=== PATIENT | female | born 1975 | race Caucasian/White ===

== ENCOUNTER → 2017-10-30 | Outpatient (CLI) | payer OTHER ==
--- NOTE | 2017-10-30 17:00 | XR ---
EXAMINATION TYPE: XR foot complete LT DATE OF EXAM: 10/30/2017 COMPARISON: NONE HISTORY: Foot pain TECHNIQUE: 3 views FINDINGS: I see no fracture nor dislocation. Joint spaces are normal. Metatarsals are intact. IMPRESSION: Negative left foot exam.
== END ==
LOC: RADXRMAIN 16:18
PROVIDERS: ATTEND Physician Assistant Medical
DX: M25.572 Pain in left ankle and joints of left foot (principal)

== ENCOUNTER 2018-04-27 12:26 | Observation (INO) | payer OTHER ==
[2018-04-27] MEDS ORDERED: NITROGLYCERIN OINT 1 INCH/GM PACKET TOPICAL STA (12:45)
--- NOTE | 2018-04-27 12:48 | ED ---
General Adult HPI - General Chief complaint: Chest Pain Stated complaint: Chest Pain Time Seen by Provider: 04/27/18 12:30 Source: patient, EMS, RN notes reviewed Mode of arrival: EMS Limitations: no limitations - History of Present Illness Initial comments: This is a 42-year-old female who presents emergency department via EMS. Patient states about an hour ago she started having chest pain that radiated directly to her back. Patient states she became very sweaty and then became nauseated and vomited. Patient states EMS to give her nitroglycerin which did relieve the pain temporarily but it did return. Patient states she was also mildly short of breath. Patient states she has high blood pressure high cholesterol and a family history is positive for heart disease. Patient denies any lightheadedness or dizziness. Patient denies any headache patient denies numbness weakness per patient denies any similar symptoms in the past. Patient denies any recent fever chills or cough. Patient denies abdominal pain. Patient denies any diarrhea recently. Patient denies any leg swelling or calf tenderness. Patient denies smoking. - Related Data Home Medications Medication Instructions Recorded Confirmed Ferrous Sulfate [Feosol] 325 mg PO DAILY 04/27/18 04/27/18 Allergies Allergy/AdvReac Type Severity Reaction Status Date / Time azithromycin [From Zithromax] Allergy Rash/Hives Verified 04/27/18 13:10 erythromycin base Allergy Rash/Hives Verified 04/27/18 13:10 Review of Systems ROS Statement: Those systems with pertinent positive or pertinent negative responses have been documented in the HPI. ROS Other: All systems not noted in ROS Statement are negative. Past Medical History Past Medical History: GERD/Reflux History of Any Multi-Drug Resistant Organisms: None Reported Past Surgical History: Hernia Repair, Tonsillectomy, Tubal Ligation Past Psychological History: No Psychological Hx Reported Smoking Status: Never smoker Past Alcohol Use History: None Reported Past Drug Use History: None Reported General Exam - General Exam Comments Initial Comments: GENERAL: Patient is well-developed and well-nourished. Patient is nontoxic and well- hydrated and is in mild distress. ENT: Neck is soft and supple. No significant lymphadenopathy is noted. Oropharynx is clear. Moist mucous membranes. Neck has full range of motion without eliciting any pain. EYES: The sclera were anicteric and conjunctiva were pink and moist. Extraocular movements were intact and pupils were equal round and reactive to light. Eyelids were unremarkable. PULMONARY: Unlabored respirations. Good breath sounds bilaterally. No audible rales rhonchi or wheezing was noted. CARDIOVASCULAR: There is a regular rate and rhythm without any murmurs gallops or rubs. ABDOMEN: Soft and nontender with normal bowel sounds. No palpable organomegaly was noted. There is no palpable pulsatile mass. SKIN: Skin is clear with no lesions or rashes and otherwise unremarkable. NEUROLOGIC: Patient is alert and oriented x3. Cranial nerves II through XII are grossly intact. Motor and sensory are also intact. Normal speech, volume and content. Symmetrical smile. MUSCULOSKELETAL: Normal extremities with adequate strength and full range of motion. No lower extremity swelling or edema. No calf tenderness. LYMPHATICS: No significant lymphadenopathy is noted PSYCHIATRIC: Normal psychiatric evaluation. Normal interpersonal interactions appears functionally intact in deals appropriately with others. No signs of depression. No signs of anxiety. Limitations: no limitations Course Vital Signs 04/27/18 04/27/18 12:31 14:09 Temperature 98.4 F Pulse Rate 92 91 Respiratory 18 18 Rate Blood Pressure 103/67 113/75 O2 Sat by Pulse 98 100 Oximetry Medical Decision Making - Medical Decision Making EKG shows normal sinus rhythm at 86 bpm HI interval 1:30 QRS is 82 QT interval 378 QT C is 452 per patient's EKG shows no ST segment elevation or depression or T wave abnormalities are noted. Chest x-ray shows no acute abnormality. I started the patient heparin because of her unstable angina like symptoms. I spoke with because he agreed to admit the patient admitted the patient I consult to cardiology and I wrote admitting orders I continue the heparin has been Nitropaste on the floor. - Lab Data Result diagrams: 04/27/18 13:00 04/27/18 13:00 Lab Results 04/27/18 04/27/18 04/27/18 Range/Units 13:00 13:00 13:00 WBC 8.3 (3.8-10.6) k/uL RBC 4.63 (3.80-5.40) m/uL Hgb 13.1 (11.4-16.0) gm/dL Hct 40.8 (34.0-46.0) % MCV 88.3 (80.0-100.0) fL MCH 28.3 (25.0-35.0) pg MCHC 32.1 (31.0-37.0) g/dL RDW 14.6 (11.5-15.5) % Plt Count 395 (150-450) k/uL Neutrophils % 67 % Lymphocytes % 25 % Monocytes % 5 % Eosinophils % 1 % Basophils % 0 % Neutrophils # 5.5 (1.3-7.7) k/uL Lymphocytes # 2.1 (1.0-4.8) k/uL Monocytes # 0.4 (0-1.0) k/uL Eosinophils # 0.1 (0-0.7) k/uL Basophils # 0.0 (0-0.2) k/uL PT (9.0-12.0) sec INR (<1.2) APTT (22.0-30.0) sec Sodium 139 (137-145) mmol/L Potassium 4.6 (3.5-5.1) mmol/L Chloride 108 H (98-107) mmol/L Carbon Dioxide 24 (22-30) mmol/L Anion Gap 7 mmol/L BUN 12 (7-17) mg/dL Creatinine 0.87 (0.52-1.04) mg/dL Est GFR (CKD-EPI)AfAm >90 (>60 ml/min/1.73 sqM) Est GFR (CKD-EPI)NonAf 83 (>60 ml/min/1.73 sqM) Glucose 114 H (74-99) mg/dL Calcium 9.3 (8.4-10.2) mg/dL Magnesium 1.8 (1.6-2.3) mg/dL Total Bilirubin 0.9 (0.2-1.3) mg/dL AST 99 H (14-36) U/L ALT 56 H (9-52) U/L Alkaline Phosphatase 124 (38-126) U/L Total Creatine Kinase 67 (30-135) U/L CK-MB (CK-2) <0.2 (0.0-2.4) ng/mL CK-MB (CK-2) Rel Index Troponin I <0.012 (0.000-0.034) ng/mL Total Protein 7.1 (6.3-8.2) g/dL Albumin 3.8 (3.5-5.0) g/dL 12/07/18 Range/Units 13:00 WBC (3.8-10.6) k/uL RBC (3.80-5.40) m/uL Hgb (11.4-16.0) gm/dL Hct (34.0-46.0) % MCV (80.0-100.0) fL MCH (25.0-35.0) pg MCHC (31.0-37.0) g/dL RDW (11.5-15.5) % Plt Count (150-450) k/uL Neutrophils % % Lymphocytes % % Monocytes % % Eosinophils % % Basophils % % Neutrophils # (1.3-7.7) k/uL Lymphocytes # (1.0-4.8) k/uL Monocytes # (0-1.0) k/uL Eosinophils # (0-0.7) k/uL Basophils # (0-0.2) k/uL PT 10.4 (9.0-12.0) sec INR 1.0 (<1.2) APTT 23.9 (22.0-30.0) sec Sodium (137-145) mmol/L Potassium (3.5-5.1) mmol/L Chloride (98-107) mmol/L Carbon Dioxide (22-30) mmol/L Anion Gap mmol/L BUN (7-17) mg/dL Creatinine (0.52-1.04) mg/dL Est GFR (CKD-EPI)AfAm (>60 ml/min/1.73 sqM) Est GFR (CKD-EPI)NonAf (>60 ml/min/1.73 sqM) Glucose (74-99) mg/dL Calcium (8.4-10.2) mg/dL Magnesium (1.6-2.3) mg/dL Total Bilirubin (0.2-1.3) mg/dL AST (14-36) U/L ALT (9-52) U/L Alkaline Phosphatase (38-126) U/L Total Creatine Kinase (30-135) U/L CK-MB (CK-2) (0.0-2.4) ng/mL CK-MB (CK-2) Rel Index Troponin I (0.000-0.034) ng/mL Total Protein (6.3-8.2) g/dL Albumin (3.5-5.0) g/dL Critical Care Time Critical Care Time: Yes Total Critical Care Time: 35 Disposition Clinical Impression: Unstable angina pectoris Disposition: ADMITTED IP TO THIS HOSP Referrals: Franco Palomo DO [Primary Care Provider] - 1-2 days Time of Disposition: 15:03
[2018-04-27 13:29] LABS: Basophils % (A) 0 %; Eosinophils # (A) 0.1 k/uL (0-0.7); Eosinophils % (A) 1 %; HCT 40.8 % (34.0-46.0); HGB 13.1 gm/dL (11.4-16.0); Lymphocytes # (A) 2.1 k/uL (1.0-4.8); Lymphocytes % (A) 25 %; MCH 28.3 pg (25.0-35.0); MCHC 32.1 g/dL (31.0-37.0); MCV 88.3 fL (80.0-100.0); Mean Platelet Volume 6.6; Monocytes # (A) 0.4 k/uL (0-1.0); Monocytes % (A) 5 %; Neutrophils # (A) 5.5 k/uL (1.3-7.7); Neutrophils % (A) 67 %; Platelet Count 395 k/uL (150-450); RBC 4.63 m/uL (3.80-5.40); RDW 14.6 % (11.5-15.5); WBC 8.3 k/uL (3.8-10.6)
--- NOTE | 2018-04-27 13:36 | XR ---
EXAMINATION TYPE: XR chest 2V DATE OF EXAM: 04/27/2018 COMPARISON: NONE HISTORY: Chest pain. TECHNIQUE: Frontal and lateral views of the chest are obtained. FINDINGS: There is no focal air space opacity, pleural effusion, or pneumothorax seen. The cardiac silhouette size is within normal limits. The osseous structures are intact. There is a partial intr athoracic stomach/large hiatal hernia. There is resultant left basilar subsegmental atelectasis aroun d the lateral periphery that is curvilinear. IMPRESSION: No acute cardiopulmonary process. Large hiatal hernia/partial intrathoracic stomach crea ting left basilar atelectasis.
[2018-04-27 13:40] LABS: Partial Thromboplastin Time 23.9 sec (22.0-30.0); Prothrombin Time 10.4 sec (9.0-12.0)
[2018-04-27 13:43] LABS: ALT 56 U/L (9-52); AST 99 U/L (14-36); Albumin 3.8 g/dL (3.5-5.0); Alkaline Phosphatase 124 U/L (38-126); Anion Gap 7 mmol/L; Blood Urea Nitrogen 12 mg/dL (7-17); Calcium 9.3 mg/dL (8.4-10.2); Carbon Dioxide 24 mmol/L (22-30); Chloride 108 mmol/L (98-107); Glucose 114 mg/dL (74-99); Magnesium 1.8 mg/dL (1.6-2.3); Potassium 4.6 mmol/L (3.5-5.1); Sodium 139 mmol/L (137-145); Total Bilirubin 0.9 mg/dL (0.2-1.3); Total Protein 7.1 g/dL (6.3-8.2)
[2018-04-27 13:58] LABS: Creatine Kinase 67 U/L (30-135)
[2018-04-27 14:11] LABS: Creatine Kinase MB <0.2 ng/mL (0.0-2.4); Troponin I <0.012 ng/mL (0.000-0.034)
[2018-04-27] MEDS ORDERED: HEPARIN SODIUM,PORCINE 5,000 UNIT/ML 1 ML VIAL IV ONE (15:04)
[2018-04-27] MEDS ORDERED: NITROGLYCERIN SL TABS 0.4 MG TAB SUBLINGUAL PRN (15:04)
[2018-04-27] MEDS ORDERED: HEPARIN SOD,PORK IN 0.45% NACL 25,000 UNIT in 0.45% NACL 1 500ML.BAG IV SCH (15:15)
--- NOTE | 2018-04-27 16:06 | P.HPIM ---
History of Present Illness Patient is a 42-year-old female came in with complaints of epigastric abdominal pain sharp in nature radiating between the shoulder blade area. Patient still has her gallbladder the pain started shortly after eating the a pretzel became nausea did did actually vomited in the ER. Patient pain lasted for about the half an hour was severe in nature at that time completely resolved now. Patient denied any fever chills patient denied any cough patient's chest pain is nonpleuritic in nature. EKG showed normal sinus rhythm patient is not a smoker, not diabetic, no history of hypertension and hyperlipidemia. Patient does have significant family history of premature coronary artery disease in brother who had myocardial infarctions at age 47 Review of Systems REVIEW OF SYSTEMS: CONSTITUTIONAL: No fever, no malaise, no fatigue. HEENT: No recent visual problems or hearing problems. Denied any sore throat. CARDIOVASCULAR: No orthopnea, PND, no palpitations, no syncope. PULMONARY: No shortness of breath, no cough, no hemoptysis. GASTROINTESTINAL: No diarrhea. NEUROLOGICAL: No headaches, no weakness, no numbness. HEMATOLOGICAL: Denies any bleeding or petechiae. GENITOURINARY: Denies any burning micturition, frequency, or urgency. MUSCULOSKELETAL/RHEUMATOLOGICAL: Denies any joint pain, swelling, or any muscle pain. ENDOCRINE: Denies any polyuria or polydipsia. The rest of the 14-point review of systems is negative. Past Medical History Past Medical History: GERD/Reflux History of Any Multi-Drug Resistant Organisms: None Reported Past Surgical History: Hernia Repair, Tonsillectomy, Tubal Ligation Past Psychological History: No Psychological Hx Reported Smoking Status: Never smoker Past Alcohol Use History: None Reported Past Drug Use History: None Reported Medications and Allergies Home Medications Medication Instructions Recorded Confirmed Type Ferrous Sulfate [Feosol] 325 mg PO DAILY 04/27/18 04/27/18 History Allergies Allergy/AdvReac Type Severity Reaction Status Date / Time azithromycin [From Zithromax] Allergy Rash/Hives Verified 04/27/18 13:10 erythromycin base Allergy Rash/Hives Verified 04/27/18 13:10 Physical Exam Vitals: Vital Signs Temp Pulse Pulse Resp BP BP Pulse Ox 04/27/18 15:46 98.0 F 68 84 17 117/68 130/82 97 04/27/18 14:09 91 18 113/75 100 04/27/18 12:31 98.4 F 92 18 103/67 98 Intake and Output 04/27/18 04/27/18 04/27/18 06:59 14:59 22:59 Other: Weight 71.668 kg 72.7 kg PHYSICAL EXAMINATION: GENERAL: The patient is alert and oriented x3, not in any acute distress. Well developed, well nourished. HEENT: Pupils are round and equally reacting to light. EOMI. No scleral icterus. No conjunctival pallor. Normocephalic, atraumatic. No pharyngeal erythema. No thyromegaly. CARDIOVASCULAR: S1 and S2 present. No murmurs, rubs, or gallops. PULMONARY: Chest is clear to auscultation, no wheezing or crackles. ABDOMEN: Soft, nontender, nondistended, normoactive bowel sounds. No palpable organomegaly. MUSCULOSKELETAL: No joint swelling or deformity. EXTREMITIES: No cyanosis, clubbing, or pedal edema. NEUROLOGICAL: Gross neurological examination did not reveal any focal deficits. SKIN: No rashes. Results CBC & Chem 7: 04/27/18 13:00 04/27/18 13:00 Labs: Abnormal Lab Results - Last 24 Hours (Table) 04/27/18 Range/Units 13:00 Chloride 108 H (98-107) mmol/L Glucose 114 H (74-99) mg/dL AST 99 H (14-36) U/L ALT 56 H (9-52) U/L Assessment and Plan Plan: -Epigastric abdominal pain and chest pain: We'll rule out a concurrent syndromes repeat the 2 more sets of troponins and EKGs cardiology will be consulted. Patient appears to have gallbladder disease will obtain ultrasound of the liver and gallbladder patient appears to have cholelithiasis. We'll also start her on Protonix -Gastroesophageal reflux disease -mildly elevated liver enzymes probably due to a passed gallstone we'll repeat liver enzymes tomorrow again -Hiatal hernia
[2018-04-27 16:08] VITALS: BMI 32.3
[2018-04-27] MEDS: NITROGLYCERIN OINT 1 INCH/GM PACKET TOPICAL SCH ×2 (18:43→22:56)
[2018-04-27] MEDS: ACETAMINOPHEN TAB 325 MG TAB PO PRN (18:48)
[2018-04-27 19:37] LABS: Creatine Kinase 65 U/L (30-135)
[2018-04-27 19:38] VITALS: RESP 16
[2018-04-27 19:50] LABS: Creatine Kinase MB 0.3 ng/mL (0.0-2.4); Troponin I <0.012 ng/mL (0.000-0.034)
[2018-04-27 23:58] LABS: Creatine Kinase 62 U/L (30-135)
[2018-04-28 00:11] LABS: Creatine Kinase MB <0.2 ng/mL (0.0-2.4); Troponin I <0.012 ng/mL (0.000-0.034)
[2018-04-28] MEDS: NITROGLYCERIN OINT 1 INCH/GM PACKET TOPICAL SCH ×4 (05:47→20:04)
[2018-04-28 06:33] LABS: ALT 217 U/L (9-52); AST 169 U/L (14-36); Albumin 3.4 g/dL (3.5-5.0); Alkaline Phosphatase 138 U/L (38-126); Anion Gap 2 mmol/L; Blood Urea Nitrogen 11 mg/dL (7-17); Calcium 8.7 mg/dL (8.4-10.2); Carbon Dioxide 28 mmol/L (22-30); Chloride 109 mmol/L (98-107); Cholesterol 171 mg/dL (<200); Glucose 90 mg/dL (74-99); HDL Cholesterol 45 mg/dL (40-60); LDL Cholesterol,Calculated 106 mg/dL (0-99); Potassium 4.9 mmol/L (3.5-5.1); Sodium 139 mmol/L (137-145); Total Bilirubin 0.5 mg/dL (0.2-1.3); Total Protein 6.7 g/dL (6.3-8.2); Triglycerides 101 mg/dL (<150)
--- NOTE | 2018-04-28 08:04 | US ---
EXAMINATION TYPE: US gallbladder DATE OF EXAM: 04/28/2018 COMPARISON: NONE CLINICAL HISTORY: chest pain. abd pain and nausea yesterday, pt states known GB stones, LFT's evelvat ed from yesterday EXAM MEASUREMENTS: Liver Length: 14.4 cm Gallbladder Wall: 0.3 cm CBD: 0.4 cm Right Kidney: 8.0 x 3.5 x 3.8 cm Pancreas: limited views appear wnl Liver: wnl Gallbladder: multiple stones seen, smaller stone near neck was slightly mobile when rolled LLD, wall thickness borderline Evidence for sonographic Burk's sign: no CBD: wnl Right Kidney: wnl Very Limited views of the pancreas are unremarkable. The liver is normal in size without biliary dilatation. There are multiple stones within the gallbladder. Gallbladder wall measures 3 mm. The distal common h epatic duct measures 4 mm. There is a negative sonographic Burk's sign. The right kidney is unremarkable. IMPRESSION: CHOLELITHIASIS WITH POSSIBLE CHOLECYSTITIS.
--- NOTE | 2018-04-28 08:28 | CONS ---
CONSULTATION This is a 42-year-old lady admitted to the hospital with epigastric and left shoulder pain with a known history of gallbladder problems including cholelithiasis and I am not sure if she had a cholecystitis in the past. This lady was also complaining of some epigastric and lower chest discomfort. Therefore I was asked to see her in this regard. She does not have any significant risk factors. She is not a smoker. No diabetes. Has no hypertension. She has some family history of premature CAD. She has not had a stress test herself. The quality of her discomfort appears to be more or less abdominal in location and does not suggest to be angina. Even these symptoms have resolved. She is resting comfortably without symptoms. On reviewing her clinical data, it appears her liver functions are getting worse suggesting that we may be dealing with a cholecystitis type issue. At the time of my evaluation, she is resting comfortably without symptoms. PAST MEDICAL HISTORY: History of gastroesophageal reflux disease with known hiatal hernia. She has had some previous hiatal hernia issues as well. She is also known to have some gallstones. No evidence of any hypertension, diabetes, myocardial infarction or CVA. She is not a smoker. Does not use alcohol. MEDICATIONS: At home include iron supplements. ALLERGIES: ZITHROMAX. PHYSICAL EXAM: Revealed a blood pressure of 118/70, pulse rate is 68 per minute and regular. HEENT unremarkable. Fundus was not examined by me. Neck is supple. No JVD. I do not hear a carotid bruit. There is no thyromegaly. Heart exam reveals S1, S2 heard normally without a rub, murmur or gallop. Lungs are clear. Abdomen is soft, nontender. Lower extremities reveal normal pulses. No edema. Central nervous system is normal. EKG revealed sinus mechanism and is within normal limits. IMPRESSION: 1. Atypical chest pain. 2. Abnormal liver function tests with epigastric discomfort and known gallstones, possibly we are dealing with cholelithiasis issues. Clinical picture does not suggest any cholecystitis. White count is normal patient is not febrile. However, liver functions are going up and troponins are normal. RECOMMENDATION: I am recommending that we will discontinue the nitroglycerin paste, reduce the aspirin to 81 mg daily, discontinue IV heparin, place her on subcu heparin and a 0.9 saline at 75 mL/hour. Her EKG and physical exam are unremarkable from a cardiac standpoint. I will see her as needed. Thank you very much for the consult. PRO / JAMAL: [id number] /
[2018-04-28] MEDS ORDERED: ASPIRIN 325 MG TAB PO SCH (09:00)
--- NOTE | 2018-04-28 10:39 | ECHOF ---
Referral Reason:chest pain MEASUREMENTS -------- HEIGHT: 149.9 cm WEIGHT: 72.6 kg BP: 102/63 RVIDd: 2.3 cm (< 3.3) IVSd: 0.8 cm (0.6 - 1.1) LVIDd: 3.8 cm (3.9 - 5.3) LVPWd: 0.9 cm (0.6 - 1.1) IVSs: 1.1 cm LVIDs: 2.3 cm LVPWs: 1.1 cm LAESV Index (A-L): 16.46 ml/m Ao Diam: 2.9 cm (2.0 - 3.7) AV Cusp: 1.6 cm (1.5 - 2.6) LA Diam: 2.9 cm (2.7 - 3.8) MV E Sebastián: 1.01 m/s MV DecT: 239 ms MV A Sebastián: 0.72 m/s MV E/A Ratio: 1.40 RAP: 5.00 mmHg RVSP: 10.93 mmHg FINDINGS -------- Sinus rhythm. This was a technically good study. The left ventricular size is normal. Left ventricular wall thickness is normal. Overall left vent ricular systolic function is normal with, an EF between 55 - 60 %. The right ventricle is normal in size and function. Normal LA size by volume 22+/-6 ml/m2. The right atrium is normal in size. The aortic valve is trileaflet, and appears structurally normal. No aortic stenosis or regurgitation. The mitral valve leaflets are mildly thickened. There is trace to mild mitral regurgitation. Trace tricuspid regurgitation present. Right ventricular systolic pressure is normal at < 35 mmHg. There is no evidence of pulmonary hypertension. Trace/mild (physiologic) pulmonic regurgitation. The aortic root size is normal. Normal inferior vena cava with normal inspiratory collapse consistent with estimated right atrial pre ssure of 5 mmHg. There is no pericardial effusion. CONCLUSIONS -------- 1. Sinus rhythm. 2. This was a technically good study. 3. The left ventricular size is normal. 4. Left ventricular wall thickness is normal. 5. Overall left ventricular systolic function is normal with, an EF between 55 - 60 %. 6. Normal LA size by volume 22+/-6 ml/m2. 7. The aortic valve is trileaflet, and appears structurally normal. No aortic stenosis or regurgitati on. 8. The mitral valve leaflets are mildly thickened. 9. There is trace to mild mitral regurgitation. 10. Trace tricuspid regurgitation present. 11. Right ventricular systolic pressure is normal at < 35 mmHg. 12. There is no evidence of pulmonary hypertension. 13. Trace/mild (physiologic) pulmonic regurgitation. 14. The aortic root size is normal. 15. There is no pericardial effusion. BAT[employer]Y PLATE REMOVER: Eusebio Cuellar RDCS
[2018-04-28] MEDS ORDERED: ceFAZolin 1,000 MG in DEXTROSE/WATER 1 50ML.BAG IVPB STA (11:16)
--- NOTE | 2018-04-28 11:16 | P.GSCN ---
History of Present Illness Consult date: 04/28/18 History of present illness: 42-year-old female presented to the emergency department with complaints of epigastric and right upper quadrant abdominal pain, nausea and vomiting. She states that this episode began after having hot dog pretzel rolls in the mall. She states she has never had this issue before. She denies any change in her bowel movements. She states that her abdominal pain still remains but her nausea has improved. She states that she does have a history of a hiatal hernia that has been overall asymptomatic. Workup has been performed which does show some elevated liver function tests, however bilirubin levels are normal. Imaging also does show cholelithiasis with concern for cholecystitis. Cardiology was consulted and have ruled out cardiac etiology. She denies any fevers, chills, chest pain or shortness of breath. Review of Systems All systems: negative Past Medical History Past Medical History: GERD/Reflux History of Any Multi-Drug Resistant Organisms: None Reported Past Surgical History: Hernia Repair, Tonsillectomy, Tubal Ligation Past Anesthesia/Blood Transfusion Reactions: No Reported Reaction Additional Past Anesthesia/Blood Transfusion Reaction / Comm: pt states that she has never had blood transfusion Past Psychological History: No Psychological Hx Reported Smoking Status: Never smoker Past Alcohol Use History: None Reported Past Drug Use History: None Reported - Past Family History Brother(s) Family Medical History: Myocardial Infarction ([place]) Sister(s) Family Medical History: Hyperlipidemia, Hypertension Mother Family Medical History: Congestive Heart Failure (CHF), COPD Father Family Medical History: Cancer, Hypertension Additional Family Medical History / Comment(s): Lung cancer Medications and Allergies Home Medications Medication Instructions Recorded Confirmed Type Ferrous Sulfate [Feosol] 325 mg PO DAILY 04/27/18 04/27/18 History Allergies Allergy/AdvReac Type Severity Reaction Status Date / Time azithromycin [From Zithromax] Allergy Rash/Hives Verified 04/27/18 13:10 erythromycin base Allergy Rash/Hives Verified 04/27/18 13:10 Surgical - Exam Osteopathic Statement: *. No significant issues noted on an osteopathic structural exam other than those noted in the History and Physical/Consult. Vital Signs Temp Pulse Resp BP Pulse Ox 98.4 F 92 18 103/67 98 04/27/18 12:31 04/27/18 12:31 04/27/18 12:31 04/27/18 12:31 04/27/18 12:31 - General well nourished, no distress - Eyes PERRL, normal ocular movement - ENT normal mucosa - Neck trachea midline - Respiratory No difficulty with respiration - Abdomen Soft, mild tenderness in the right upper quadrant, nondistended, no rebound, no guarding - Neurologic normal coordination - Psychiatric oriented to time, oriented to person, oriented to place Results - Labs 04/27/18 13:00 04/28/18 05:40 Abnormal Lab Results - Last 24 Hours (Table) 04/27/18 04/27/18 04/28/18 Range/Units 13:00 22:28 05:40 APTT 49.7 H (22.0-30.0) sec Chloride 108 H 109 H (98-107) mmol/L Glucose 114 H (74-99) mg/dL AST 99 H 169 H (14-36) U/L ALT 56 H 217 H (9-52) U/L Alkaline Phosphatase 138 H (38-126) U/L Albumin 3.4 L (3.5-5.0) g/dL LDL Cholesterol, Calc 106 H (0-99) mg/dL 04/28/18 Range/Units 05:40 APTT 52.0 H (22.0-30.0) sec Chloride (98-107) mmol/L Glucose (74-99) mg/dL AST (14-36) U/L ALT (9-52) U/L Alkaline Phosphatase (38-126) U/L Albumin (3.5-5.0) g/dL LDL Cholesterol, Calc (0-99) mg/dL Diabetes panel 04/27/18 04/28/18 Range/Units 13:00 05:40 Sodium 139 139 (137-145) mmol/L Potassium 4.6 4.9 (3.5-5.1) mmol/L Chloride 108 H 109 H (98-107) mmol/L Carbon Dioxide 24 28 (22-30) mmol/L BUN 12 11 (7-17) mg/dL Creatinine 0.87 0.88 (0.52-1.04) mg/dL Glucose 114 H 90 (74-99) mg/dL Calcium 9.3 8.7 (8.4-10.2) mg/dL AST 99 H 169 H (14-36) U/L ALT 56 H 217 H (9-52) U/L Alkaline Phosphatase 124 138 H (38-126) U/L Total Protein 7.1 6.7 (6.3-8.2) g/dL Albumin 3.8 3.4 L (3.5-5.0) g/dL Triglycerides 101 (<150) mg/dL HDL Cholesterol 45 (40-60) mg/dL Calcium panel 04/27/18 04/28/18 Range/Units 13:00 05:40 Calcium 9.3 8.7 (8.4-10.2) mg/dL Albumin 3.8 3.4 L (3.5-5.0) g/dL Pituitary panel 04/27/18 04/28/18 Range/Units 13:00 05:40 Sodium 139 139 (137-145) mmol/L Potassium 4.6 4.9 (3.5-5.1) mmol/L Chloride 108 H 109 H (98-107) mmol/L Carbon Dioxide 24 28 (22-30) mmol/L BUN 12 11 (7-17) mg/dL Creatinine 0.87 0.88 (0.52-1.04) mg/dL Glucose 114 H 90 (74-99) mg/dL Calcium 9.3 8.7 (8.4-10.2) mg/dL Adrenal panel 04/27/18 04/28/18 Range/Units 13:00 05:40 Sodium 139 139 (137-145) mmol/L Potassium 4.6 4.9 (3.5-5.1) mmol/L Chloride 108 H 109 H (98-107) mmol/L Carbon Dioxide 24 28 (22-30) mmol/L BUN 12 11 (7-17) mg/dL Creatinine 0.87 0.88 (0.52-1.04) mg/dL Glucose 114 H 90 (74-99) mg/dL Calcium 9.3 8.7 (8.4-10.2) mg/dL Total Bilirubin 0.9 0.5 (0.2-1.3) mg/dL AST 99 H 169 H (14-36) U/L ALT 56 H 217 H (9-52) U/L Alkaline Phosphatase 124 138 H (38-126) U/L Total Protein 7.1 6.7 (6.3-8.2) g/dL Albumin 3.8 3.4 L (3.5-5.0) g/dL - Imaging US - abdomen: report reviewed, image reviewed (Cholelithiasis noted within the gallbladder, agree with 3 mm gallbladder wall) Assessment and Plan Plan: 42-year-old female with acute cholecystitis - Keep the patient nothing by mouth - Plan for laparoscopic cholecystectomy, I did discuss this with the patient. The patient is agreeable to the plan. - Will provide preop antibiotics and heparin
[2018-04-28] MEDS ORDERED: HEPARIN SODIUM,PORCINE 5,000 UNIT/ML 1 ML VIAL ONE (13:06)
[2018-04-28] MEDS ORDERED: MIDAZOLAM 2 MG/2 ML VIAL ONE (13:06)
[2018-04-28] MEDS ORDERED: KETOROLAC 30 MG/ML 1 ML VIAL ONE (13:06)
[2018-04-28] MEDS ORDERED: GLYCOPYRROLATE 0.2 MG/ML 2 ML VIAL ONE (13:06)
[2018-04-28] MEDS ORDERED: LIDOCAINE 1% INJ 10MG/ML (20 ML MDV) ONE (13:06)
[2018-04-28] MEDS ORDERED: SUCCINYLCHOLINE CHLORIDE 100 MG/5 ML SYR IV ONE (13:06)
[2018-04-28] MEDS ORDERED: SODIUM CHLORIDE 0.9% 1,000 ML IV ONE (13:06)
[2018-04-28] MEDS ORDERED: NEOSTIGMINE 1 MG/ML 10 ML VIAL ONE (13:06)
[2018-04-28] MEDS ORDERED: ROCURONIUM BROMIDE 10 MG/ML 10 ML VIAL IV ONE (13:06)
[2018-04-28] MEDS ORDERED: fentaNYL (PF) 50 MCG/ML 2 ML AMP ONE (13:06)
[2018-04-28] MEDS ORDERED: PROPOFOL 10 MG/ML 20 ML VIAL IV ONE (13:06)
[2018-04-28] MEDS ORDERED: SODIUM CHLORIDE 0.9% 50 ML with ceFAZolin 2,000 MG IV ONE ×2 (13:21)
[2018-04-28] MEDS ORDERED: MORPHINE SULFATE 2 MG/ML SYRINGE IV PRN (13:24)
[2018-04-28] MEDS ORDERED: HYDROmorphone 0.5 MG/0.5 ML SYRINGE IVP PRN (13:24)
[2018-04-28] MEDS ORDERED: LACTATED RINGERS 1,000 ML IV SCH (13:30)
[2018-04-28] MEDS ORDERED: BUPIVACAIN-EPI 0.5%-1:200,000 30 ML VIAL SQ ONE ×2 (13:36)
[2018-04-28] MEDS ORDERED: HYDROcodone/APAP 5-325MG 1 EACH TAB PO PRN (14:07)
[2018-04-28] MEDS ORDERED: MORPHINE SULFATE 2 MG/ML SYRINGE IVP PRN (14:08)
--- NOTE | 2018-04-28 14:13 | P.OP ---
Date of Procedure: 04/28/18 Preoperative Diagnosis: Acute cholecystitis Postoperative Diagnosis: Acute cholecystitis Procedure(s) Performed: Laparoscopic cholecystectomy Anesthesia: LAURA Surgeon: Jocelyn Paiz Pathology: other (Gallbladder and contents) Condition: stable Disposition: observation Indications for Procedure: 40-year-old female presented to the emergency department with complaints of abdominal pain. During workup, the patient was found to have acute cholecystitis. The patient was offered a laparoscopic cholecystectomy. She was explained the risks, benefits and alternatives to the procedure and did provide consent prior to attending the operating suite. Operative Findings: Inflamed gallbladder, large gallstones Description of Procedure: The patient was brought into the operating suite and placed in supine position on the operating table. Sedation was provided by anesthesia and the patient underwent endotracheal intubation. The patient was then prepped and draped in regular sterile fashion. A periumbilical incision was made just right of the midline at the umbilical area. The abdomen was entered under direct visualization using a Visiport trocar. Pneumoperitoneum was then achieved. 3 additional 5 mm trochars were then placed. One was placed in the subxiphoid location and 2 were placed in the right upper quadrant. The gallbladder was then grasped and retracted and the patient was placed in appropriate position. Dissection was made to skeletonize both the cystic duct and cystic artery. The cystic duct was skeletonized 2 clips were placed proximally and one was placed distally. The cystic duct was then ligated. The cystic artery also had 2 clips placed proximally and one placed distally and the cystic artery was ligated. Electrocautery was then used to dissect the gallbladder from the gallbladder fossa on the liver bed. Once completely removed it was placed in an Endo Catch bag and removed from the abdomen from the periumbilical incision site. Irrigation was then used in the right upper quadrant and suctioned. Hemostasis was noted to be maintained. A Tirso Fuchs device was then used to close the fascia at the periumbilical incision site with a 0 Vicryl suture in [id number] fashion. All skin incisions were then closed with 4-0 Vicryl subcuticular suture after trochars were removed and pneumoperitoneum was released. The patient was awakened in the operating suite and taken to postanesthesia care unit in stable condition.
[2018-04-28] MEDS: HYDROmorphone 1 MG/ML 1 ML SYRINGE IVP ONE ×2 (14:23→14:27)
[2018-04-28] MEDS ORDERED: ONDANSETRON 4 MG/2 ML VIAL IVP ONE (14:25)
[2018-04-28] MEDS: PANTOPRAZOLE 40 MG TABLET PO SCH (15:07)
[2018-04-28] MEDS: ASPIRIN 81 MG PO SCH (15:07)
[2018-04-28] MEDS: HEPARIN SODIUM,PORCINE 5,000 UNIT/ML 1 ML VIAL SQ SCH ×2 (15:07→19:56)
--- NOTE | 2018-04-28 15:28 | P.DS ---
Providers Date of admission: 04/27/18 15:06 Attending physician: Orlando Cline Consults: 04/27/18 15:05 Consult Physician Urgent Consulting Provider: [facility] Consult Reason/Comments: Unstable angina Do you want consulting provider notified?: Yes 04/28/18 08:32 Consult Physician Routine Consulting Provider: Jocelyn Paiz Consult Reason/Comments: cholecystitis/large hiatal hernia Do you want consulting provider notified?: Yes Primary care physician: Franco Palomo [facility] Course: 42-year-old female admitted the for chest pain rule out acute medicine syndromes. Patient is found to have cholecystitis patient will undergo laparoscopy cholecystectomy today if cleared by general surgery patient will be discharged today. PHYSICAL EXAMINATION: GENERAL: The patient is alert and oriented x3, not in any acute distress. Well developed, well nourished. HEENT: Pupils are round and equally reacting to light. EOMI. No scleral icterus. No conjunctival pallor. Normocephalic, atraumatic. No pharyngeal erythema. No thyromegaly. CARDIOVASCULAR: S1 and S2 present. No murmurs, rubs, or gallops. PULMONARY: Chest is clear to auscultation, no wheezing or crackles. ABDOMEN: Soft, nontender, nondistended, normoactive bowel sounds. No palpable organomegaly. MUSCULOSKELETAL: No joint swelling or deformity. EXTREMITIES: No cyanosis, clubbing, or pedal edema. NEUROLOGICAL: Gross neurological examination did not reveal any focal deficits. SKIN: No rashes. For rest of the chronic medical problems hospitalization course please refer to my HPI from yesterday Plan - Discharge Summary Discharge Rx Participant: No New Discharge Prescriptions: No Action Ferrous Sulfate [Feosol] 325 mg PO DAILY Discharge Medication List Ferrous Sulfate [Feosol] 325 mg PO DAILY 04/27/18 [History] Follow up Appointment(s)/Referral(s): Franco Palomo DO [Primary Care Provider] - 1-2 days Jocelyn Paiz DO [Doctor of Osteopathic Medicine] - 2 Weeks
[2018-04-28] MEDS ORDERED: ONDANSETRON 4 MG/2 ML VIAL IVP PRN (15:54)
[2018-04-28] MEDS: ACETAMINOPHEN TAB 325 MG TAB PO PRN (22:43)
[2018-04-29 05:54] LABS: Basophils % (A) 0 %; Eosinophils # (A) 0.1 k/uL (0-0.7); Eosinophils % (A) 1 %; HCT 37.3 % (34.0-46.0); HGB 11.7 gm/dL (11.4-16.0); Lymphocytes # (A) 2.2 k/uL (1.0-4.8); Lymphocytes % (A) 25 %; MCH 28.5 pg (25.0-35.0); MCHC 31.4 g/dL (31.0-37.0); MCV 90.7 fL (80.0-100.0); Mean Platelet Volume 6.4; Monocytes # (A) 0.4 k/uL (0-1.0); Monocytes % (A) 5 %; Neutrophils # (A) 6.1 k/uL (1.3-7.7); Neutrophils % (A) 68 %; Platelet Count 378 k/uL (150-450); RBC 4.11 m/uL (3.80-5.40); RDW 14.7 % (11.5-15.5)
[2018-04-29 06:05] LABS: ALT 164 U/L (9-52); AST 93 U/L (14-36); Albumin 3.1 g/dL (3.5-5.0); Alkaline Phosphatase 118 U/L (38-126); Anion Gap 5 mmol/L; Bilirubin, Delta 0.3 mg/dL (0.0-0.2); Bilirubin,Unconjugated 0.2 mg/dL (0.0-1.1); Blood Urea Nitrogen 8 mg/dL (7-17); Calcium 8.5 mg/dL (8.4-10.2); Carbon Dioxide 25 mmol/L (22-30); Chloride 109 mmol/L (98-107); Glucose 83 mg/dL (74-99); Potassium 4.5 mmol/L (3.5-5.1); Sodium 139 mmol/L (137-145); Total Bilirubin 0.5 mg/dL (0.2-1.3); Total Protein 6.2 g/dL (6.3-8.2)
[2018-04-29] MEDS: NITROGLYCERIN OINT 1 INCH/GM PACKET TOPICAL SCH (06:08)
[2018-04-29 08:02] VITALS: BP 108/73; PULSE 98; TEMP 98.4
[2018-04-29] MEDS: ASPIRIN 81 MG PO SCH (08:48)
[2018-04-29] MEDS: PANTOPRAZOLE 40 MG TABLET PO SCH (09:07)
--- NOTE | 2018-04-29 10:40 | P.PN ---
Subjective Progress Note Date: 04/29/18 Patient seen and examined at bedside. States she is doing well. Denies nausea or vomiting. Tolerating diet. Pain well-controlled. Objective - Vital Signs Vital signs: Vital Signs Temp 98.4 F 04/29/18 08:00 Pulse 98 04/29/18 08:00 Resp 16 04/29/18 08:00 BP 108/73 04/29/18 08:00 Pulse Ox 98 04/29/18 08:00 Intake & Output 04/28/18 04/29/18 04/29/18 18:59 06:59 18:59 Intake Total 500 440 Output Total 5 Balance 495 440 Intake: IV 500 Oral 440 Output: Estimated Blood Loss 5 Other: Voiding Method Toilet Toilet Toilet # Voids 1 - Constitutional General appearance: Present: cooperative - Respiratory Details: No difficulty with respiration - Gastrointestinal Gastrointestinal Comment(s): Soft, appropriate tenderness, nondistended, no rebound, no guarding, incision sites are clean, dry and intact - Psychiatric Psychiatric: Present: A&O x's 3 - Labs CBC & Chem 7: 04/29/18 05:43 04/29/18 05:43 Labs: Abnormal Lab Results - Last 24 Hours (Table) 04/29/18 Range/Units 05:43 Chloride 109 H (98-107) mmol/L Delta Bilirubin 0.3 H (0.0-0.2) mg/dL AST 93 H (14-36) U/L ALT 164 H (9-52) U/L Total Protein 6.2 L (6.3-8.2) g/dL Albumin 3.1 L (3.5-5.0) g/dL Assessment and Plan Plan: 42-year-old female with acute cholecystitis - Postop day #1 status post left scopic cholecystectomy - Stable for discharge per surgery - I did discuss with the patient postoperative care. She is to remain on a soft diet. Her weight restriction and lifting is no greater than 7 pounds. - Follow up with me in 10-14 days.
--- NOTE | 2018-04-29 15:22 | P.DS ---
Providers Date of admission: 04/27/18 15:06 Attending physician: Orlando Cline Consults: 04/27/18 15:05 Consult Physician Urgent Consulting Provider: [facility] Consult Reason/Comments: Unstable angina Do you want consulting provider notified?: Yes 04/28/18 08:32 Consult Physician Routine Consulting Provider: Jocelyn Paiz Consult Reason/Comments: cholecystitis/large hiatal hernia Do you want consulting provider notified?: Yes Primary care physician: Franco Palomo [facility] Course: Patient left AGAINST MEDICAL ADVICE Plan - Discharge Summary Discharge Rx Participant: No New Discharge Prescriptions: New HYDROcodone/APAP 5-325MG [[place] 5-325] 1 tab PO Q6HR PRN 3 Days #10 tab PRN Reason: Pain No Action Ferrous Sulfate [Feosol] 325 mg PO DAILY Discharge Medication List Ferrous Sulfate [Feosol] 325 mg PO DAILY 04/27/18 [History] HYDROcodone/APAP 5-325MG [[place] 5-325] 1 tab PO Q6HR PRN 3 Days #10 tab [Rx] Follow up Appointment(s)/Referral(s): Franco Palomo DO [Primary Care Provider] - 1-2 days Jocelyn Paiz DO [Doctor of Osteopathic Medicine] - 2 Weeks (Call office in am to schedule follow up appointmnet with Dr. Paiz in 2 weeks) Patient Instructions/Handouts: Laparoscopic Cholecystectomy (DC) Discharge Disposition: HOME SELF-CARE
== END 2018-04-29 11:17 | disposition home or self-care (01) ==
LOC: EC 12:26 → 1SOBS 15:06
PROVIDERS: ADMIT Internal Medicine; ATTEND Internal Medicine
DX: K80.12 Calculus of gallbladder with acute and chronic cholecystitis without obstruction (principal); R07.89 Other chest pain; R61 Generalized hyperhidrosis; R06.02 Shortness of breath; K44.9 Diaphragmatic hernia without obstruction or gangrene; K21.9 Gastro-esophageal reflux disease without esophagitis; Z53.21 Procedure and treatment not carried out due to patient leaving prior to being seen by health care provider; Z79.899 Other long term (current) drug therapy; Z88.1 Allergy status to other antibiotic agents; Z82.49 Family history of ischemic heart disease and other diseases of the circulatory system; Z82.5 Family history of asthma and other chronic lower respiratory diseases; Z80.1 Family history of malignant neoplasm of trachea, bronchus and lung
CPT/HCPCS: 47562; 93005 ×2; 96365; 96366 ×2; 96376; 99291; 36415; 93306; 88304; 80061; 80053 ×3; 82248; 82550; 82553; 83735; 84484; 85025 ×2; 85610; 85730 ×2; 71046; 76705; G0378 ×3; J2250; J1644 ×3; J2710; J2405; J2001; J3010; J1885; J2270; J1170; J0690; J0330; J2704

== ENCOUNTER 2018-09-30 15:09 | Emergency (ER) | payer OTHER ==
[2018-09-30 15:14] VITALS: BP 136/79; PULSE 94; RESP 16; TEMP 98.7
[2018-09-30] MEDS ORDERED: KETOROLAC 30 MG/ML 1 ML VIAL IM STA (16:04)
--- NOTE | 2018-09-30 16:21 | ED ---
General Adult HPI - General Chief complaint: Extremity Injury, Upper Stated complaint: Shoulder pain Time Seen by Provider: 09/30/18 15:44 Source: patient, RN notes reviewed Mode of arrival: ambulatory Limitations: no limitations - History of Present Illness Initial comments: 42-year-old femaleWith a past medical history of GERD presents to the emergency department for a chief complaint of left upper back and shoulder pain. Patient states this has been going on for several months she has had pain in her left arm. States she has been doing exercises by her doctor stated she may need physical therapy. Patient states that today she was reaching up into her closet when she suddenly felt the pain in her left side back near her shoulder blade. Patient states that this pain occurs only when she moves. Sates that twisting makes the pain worse and reaching with her arm. Patient denies any chest pain or shortness of breath whatsoever. Patient denies any other injuries. Patient denies any midline back pain.Patient has no other complaints at this time including shortness of breath, chest pain, abdominal pain, nausea or vomiting, headache, or visual changes. - Related Data Home Medications Medication Instructions Recorded Confirmed Ferrous Sulfate [Feosol] 325 mg PO DAILY 04/27/18 04/27/18 Previous Rx's Medication Instructions Recorded HYDROcodone/APAP 5-325MG [[place] 1 tab PO Q6HR PRN 3 Days #10 tab 04/29/18 5-325] Allergies Allergy/AdvReac Type Severity Reaction Status Date / Time azithromycin [From Zithromax] Allergy Rash/Hives Verified 09/30/18 15:14 erythromycin base Allergy Rash/Hives Verified 09/30/18 15:14 Review of Systems ROS Statement: Those systems with pertinent positive or pertinent negative responses have been documented in the HPI. ROS Other: All systems not noted in ROS Statement are negative. Past Medical History Past Medical History: GERD/Reflux History of Any Multi-Drug Resistant Organisms: None Reported Past Surgical History: Hernia Repair, Tonsillectomy, Tubal Ligation Past Anesthesia/Blood Transfusion Reactions: No Reported Reaction Additional Past Anesthesia/Blood Transfusion Reaction / Comment(s): pt states that she has never had blood transfusion Past Psychological History: No Psychological Hx Reported Smoking Status: Never smoker Past Alcohol Use History: None Reported Past Drug Use History: None Reported - Past Family History Brother(s) Family Medical History: Myocardial Infarction ([place]) Sister(s) Family Medical History: Hyperlipidemia, Hypertension Mother Family Medical History: Congestive Heart Failure (CHF), COPD Father Family Medical History: Cancer, Hypertension Additional Family Medical History / Comment(s): Lung cancer General Exam Limitations: no limitations General appearance: alert, in no apparent distress Head exam: Present: atraumatic, normocephalic, normal inspection Eye exam: Present: normal appearance, PERRL, EOMI. Absent: scleral icterus, conjunctival injection, periorbital swelling ENT exam: Present: normal exam, mucous membranes moist Neck exam: Present: normal inspection, full ROM. Absent: tenderness, meningismus, lymphadenopathy Respiratory exam: Present: normal lung sounds bilaterally. Absent: respiratory distress, wheezes, rales, rhonchi, stridor Cardiovascular Exam: Present: regular rate, normal rhythm, normal heart sounds. Absent: systolic murmur, diastolic murmur, rubs, gallop, clicks Extremities exam: Present: full ROM (Patient has full range of motion of the shoulder but does have pain with flexion past 90), normal capillary refill (Capillary refill less than 2 seconds in upper extremities bilaterally and radial pulses 2+ in upper extremities bilaterally) Back exam: Present: muscle spasm (Patient has tenderness noted of the trapezius just medial to the right shoulder blade). Absent: vertebral tenderness Neurological exam: Present: alert, oriented X3, CN II-XII intact Psychiatric exam: Present: normal affect, normal mood Course Vital Signs 09/30/18 15:12 Temperature 98.7 F Pulse Rate 94 Respiratory 16 Rate Blood Pressure 136/79 O2 Sat by Pulse 99 Oximetry Medical Decision Making - Medical Decision Making 42-year-old female presents for left shoulder pain. States she has had left arm pain for several months. States that today she was reaching up into her causing started have pain by her shoulder blade. This is all started when reaching. States it only hurts when she moves back and forth. States twisting specifically makes this worse. States she wanted to make sure her shoulder was okay so presented to the emergency department after going to dinner. On exam patient does have some tenderness noted of the trapezius just medial to the left shoulder blade. Neurovascular status intact in the left upper extremity with capillary refill less than 2 seconds and radial pulse 2+. Pulses equal bilaterally in upper extremities. She denies any chest pain or shortness of breath whatsoever. Patient is pain worsening with movement of the left arm. Pain is likely musculoskeletal in nature. Chest x-ray was ordered which showed no cardiopulmonary disease however large hiatal hernia. Patient states she is aware of this and will follow up with primary care regardless. Shoulder x-rays negative. Discussed going up with orthopedics as well. Discussed returning if she has any worsening symptoms. Disposition Clinical Impression: Shoulder pain Disposition: HOME SELF-CARE Condition: Good Instructions (If sedation given, give patient instructions): Shoulder Pain (ED) Additional Instructions: Please take Motrin and Tylenol for pain. Please take muscle relaxer as needed but do not drive or operate machinery when taking this. Please follow-up with primary care and ortho in 1-2 days. Return here if you've any worsening symptoms. Is patient prescribed a controlled substance at d/c from ED?: No Referrals: Franco Palomo DO [Primary Care Provider] - 1-2 days Nicholas Burk MD [STAFF PHYSICIAN] - 1-2 days Time of Disposition: 17:11
--- NOTE | 2018-09-30 16:34 | XR ---
EXAMINATION TYPE: XR chest 2V DATE OF EXAM: 09/30/2018 COMPARISON: 04/27/2018 HISTORY: Scapular pain TECHNIQUE: Frontal and lateral views of the chest are obtained. FINDINGS: Heart and mediastinum are normal. Lungs are clear. There is large hiatal hernia. Bony thor ax is intact. IMPRESSION: No cardiopulmonary disease. Large hiatal hernia. No change.
--- NOTE | 2018-09-30 16:35 | XR ---
EXAMINATION TYPE: XR shoulder complete LT DATE OF EXAM: 09/30/2018 COMPARISON: NONE HISTORY: Scapular pain TECHNIQUE: 3 views FINDINGS: I see no fracture nor dislocation. Joint spaces are normal. There are no pathologic calcifi cations. IMPRESSION: Negative left shoulder exam.
== END 2018-09-30 17:19 | disposition home or self-care (01) ==
LOC: EC 15:09
DX: M25.512 Pain in left shoulder (principal); K44.9 Diaphragmatic hernia without obstruction or gangrene; Z88.1 Allergy status to other antibiotic agents
CPT/HCPCS: 73030; 71046; 99283; 96372; J1885

== ENCOUNTER → 2020-04-10 | Outpatient (CLI) | payer OTHER ==
--- NOTE | 2020-04-10 15:05 | XR ---
EXAMINATION TYPE: XR ankle complete RT DATE OF EXAM: 04/10/2020 COMPARISON: None HISTORY: Fall, pain 2 weeks prior TECHNIQUE: Three-view right ankle FINDINGS: Ankle mortise is intact. No acute fractures or dislocations are evident. Joint spaces are p reserved. IMPRESSION: 1. Normal three-view right ankle
--- NOTE | 2020-04-10 15:05 | XR ---
EXAMINATION TYPE: XR foot complete RT DATE OF EXAM: 04/10/2020 COMPARISON: None HISTORY: Pain TECHNIQUE: Three-view right foot FINDINGS: No acute fractures or dislocations are evident. Joint spaces are preserved. Plantar arch is preserved. Follow-up exams can be performed 7-10 days from acute trauma for continued pain IMPRESSION: 1. Normal three-view right foot
== END | disposition home or self-care (01) ==
LOC: RADXRMAIN 12:03
PROVIDERS: ATTEND Physician Assistant Medical
DX: M25.571 Pain in right ankle and joints of right foot (principal)

== ENCOUNTER → 2020-10-23 | Outpatient (CLI) | payer OTHER ==
--- NOTE | 2020-10-23 08:44 | US ---
EXAMINATION TYPE: US pelvic complete DATE OF EXAM: 10/23/2020 COMPARISON: NONE CLINICAL HISTORY: N93.8 abnormal uterine and vaginal bleeding. DUB TECHNIQUE: Transabdominal (TA). Transabdominal sonographic images of the pelvis were acquired. Tra nsvaginal sonographic images were medically necessary to better assess the following anatomy: EXAM MEASUREMENTS: Uterus: 10.3 x 4.1 x 5.7 cm Endometrial Stripe: .9 cm Right Ovary: 1.8 x 1.4 x 1.4 cm Left Ovary: 2.1 x 1.4 x 1.9 cm 1. Uterus: Anteverted wnl 2. Endometrium: wnl 3. Right Ovary: wnl 9 mm follicle. 4. Left Ovary: wnl 5. Bilateral Adnexa: wnl 6. Posterior cul-de-sac: wnl IMPRESSION: 1. Unremarkable sonographic study of the pelvis.
== END | disposition home or self-care (01) ==
LOC: RADUSWWP 08:03
PROVIDERS: ATTEND Obstetrics & Gynecology
DX: N93.8 Other specified abnormal uterine and vaginal bleeding (principal)
CPT/HCPCS: 76856

== ENCOUNTER → 2020-12-18 | Outpatient (CLI) | payer OTHER ==
[2020-12-18 18:47] LABS: Basophils # (A) 0.05 X 10*3/uL (0.00-0.10); Basophils % (A) 0.6 %; Eosinophils # (A) 0.12 X 10*3/uL (0.04-0.35); Eosinophils % (A) 1.4 %; HCT 44.7 % (37.2-46.3); Lymphocytes # (A) 2.68 X 10*3/uL (0.90-5.00); Lymphocytes % (A) 31.1 %; MCH 28.3 pg (27.0-32.0); MCHC 31.3 g/dL (32.0-37.0); MCV 90.5 fL (80.0-97.0); Mean Platelet Volume 9.9 fL (9.5-12.2); Monocytes # (A) 0.68 X 10*3/uL (0.20-1.00); Monocytes % (A) 7.9 %; Neutrophils # (A) 5.08 X 10*3/uL (1.80-7.70); Neutrophils % (A) 58.8 %; Platelet Count 471 X 10*3/uL (140-440); RBC 4.94 X 10*6/uL (4.10-5.20); RDW 13.7 % (11.5-14.5); WBC 8.63 X 10*3/uL (4.50-10.00)
[2020-12-19 02:32] LABS: % Iron Saturation 17.76 (12.00-45.00)
[2020-12-19 02:40] LABS: Progesterone 1.7 ng/mL
[2020-12-19 02:41] LABS: Luteinizing Hormone 15.6 mIU/mL; T4, Free (Free Thyroxine) 1.3 ng/dL (0.80-1.80)
[2020-12-19 02:43] LABS: Estradiol 94.2 pg/mL; Follicle Stimulating Hormone 21.5 mIU/mL
[2020-12-19 03:26] LABS: Ferritin 9.5 ng/mL (10.0-291.0)
== END | disposition home or self-care (01) ==
LOC: LABWHC1 10:43
PROVIDERS: ATTEND Physician Assistant Medical
DX: N95.8 Other specified menopausal and perimenopausal disorders (principal); N92.6 Irregular menstruation, unspecified; R53.83 Other fatigue
CPT/HCPCS: 36415; 82670; 82728; 83001; 83002; 83540; 83550; 84144; 84439; 84443; 85025; 86376; 86800

== ENCOUNTER → 2021-01-27 | Outpatient (CLI) | payer OTHER ==
--- NOTE | 2021-01-28 12:43 | MM ---
Reason for exam: screening (asymptomatic). Baseline mammogram. Physical Findings: Nurse did not find any significant physical abnormalities on exam. MG Screening Mammo w CAD Bilateral CC and MLO view(s) were taken. The breast tissue is heterogeneously dense. This may lower the sensitivity of mammography. Focal asymmetry 7mm posterior upper right MLO view only, 11cm from nipple. ASSESSMENT: Incomplete: need additional imaging evaluation, BI-RAD 0 RECOMMENDATION: Special view mammogram of the right breast. If lesion persists on supplemental views, image directed ultrasound is recommended. [facility] will attempt to contact patient to return for supplemental views and ultrasound if indicated.
== END | disposition home or self-care (01) ==
LOC: RADMAMWWP 07:29
PROVIDERS: ATTEND Obstetrics & Gynecology
DX: Z12.31 Encounter for screening mammogram for malignant neoplasm of breast (principal)
CPT/HCPCS: 77067

== ENCOUNTER → 2021-01-29 | Outpatient (CLI) | payer OTHER ==
--- NOTE | 2021-01-29 12:18 | MM ---
Reason for exam: additional evaluation requested from abnormal screening. Last mammogram was performed less than 1 month ago. Physical Findings: Nurse did not find any significant physical abnormalities on exam. MG Work Up Mamm w CAD RT Spot compression MLO, LM, and XCCL view(s) were taken of the right breast. Prior study comparison: January 27, 2021, bilateral MG screening mammo w CAD. Density upper outer right breast is improved. 6 month follow up recommended. These results were verbally communicated with the patient and result sheet given to the patient on 01/29/21. ASSESSMENT: Probably benign, BI-RAD 3 RECOMMENDATION: Follow-up diagnostic mammogram of the right breast in 6 months.
== END | disposition home or self-care (01) ==
LOC: RADMAMWWP 06:57
PROVIDERS: ATTEND Obstetrics & Gynecology
DX: N64.89 Other specified disorders of breast (principal)
CPT/HCPCS: 77065

== ENCOUNTER → 2023-11-24 | Outpatient (CLI) | payer BC ==
[2023-11-24 15:17] LABS: HCT 42.7 % (37.2-46.3); HGB 13.8 g/dL (12.0-15.0); MCH 30.2 pg (27.0-32.0); MCHC 32.3 g/dL (32.0-37.0); MCV 93.4 FL (80.0-97.0); NRBC Per 100 WBC 0 X 10*3/uL (0.00-0.01); Platelet Count 432 X 10*3/uL (140-440); RBC 4.57 X 10*6/uL (4.10-5.20); RDW 13.2 % (11.5-14.5); WBC 7.76 X 10*3/uL (4.50-10.00)
[2023-11-24 15:18] LABS: Basophils # (A) 0.03 X 10*3/uL (0.00-0.10); Basophils % (A) 0.4 %; Eosinophils # (A) 0.14 X 10*3/uL (0.04-0.35); Eosinophils % (A) 1.8 %; Lymphocytes % (A) 39.9 %; Monocytes # (A) 0.57 X 10*3/uL (0.20-1.00); Monocytes % (A) 7.3 %; Neutrophils % (A) 50.3 %
[2023-11-24 15:52] LABS: Blood Urea Nitrogen 11.3 mg/dL (9.0-27.0); Carbon Dioxide 24.3 mmol/L (21.6-31.8); Chloride 102 mmol/L (96-109); Glucose 82 mg/dL (70-110); Potassium 4.5 mmol/L (3.5-5.5); Sodium 136 mmol/L (135-145)
== END | disposition home or self-care (01) ==
LOC: LABPAT 07:38
PROVIDERS: ATTEND Obstetrics & Gynecology
DX: Z01.812 Encounter for preprocedural laboratory examination (principal)
CPT/HCPCS: 36415; 80051; 82565; 82947; 84520; 85025; 86850; 86900; 86901; 87086

== ENCOUNTER 2023-12-04 05:40 | Day surgery (SDC) | payer BC, OTHER ==
[2023-11-28 11:36] VITALS: BMI 30.2
[2023-12-04] MEDS ORDERED: LIDOCAINE 1% (10MG/ML) FOR IV START INTRADERMA PRN (06:07)
[2023-12-04] MEDS: IV FLUID CONTINUATION 1,000 ML IV ONE (06:16)
[2023-12-04] MEDS: LACTATED RINGERS 1,000 ML IV SCH (06:42)
[2023-12-04] MEDS: DEXAMETHASONE SOD PHOSPHATE 4 MG/ML 1 ML VIAL IV ONE (06:42)
[2023-12-04] MEDS: ONDANSETRON 4 MG/2 ML VIAL IVP ONE (06:42)
[2023-12-04] MEDS: MIDAZOLAM 2 MG/2 ML VIAL IVP ONE (06:53)
[2023-12-04] MEDS ORDERED: HYDROmorphone 0.5 MG/0.5 ML SYRINGE IVP PRN (07:00)
--- NOTE | 2023-12-04 07:14 | P.HPOB ---
History of Present Illness H&P Date: 12/04/23 Chief Complaint: rectocele, menorrhagia 48 year old presents for TLH BS using da yahaira and diagnostic cystoscopy with posterior repair, possible KATIE BSO. Review of Systems All systems: negative Constitutional: Denies chills, Denies fever Eyes: denies blurred vision, denies pain Ears, nose, mouth and throat: Denies headache, Denies sore throat Cardiovascular: Denies chest pain, Denies shortness of breath Respiratory: Denies cough Gastrointestinal: Denies abdominal pain, Denies diarrhea, Denies nausea, Denies vomiting Genitourinary: Denies dysuria, Denies hematuria Musculoskeletal: Denies myalgias Integumentary: Denies pruritus, Denies rash Neurological: Denies numbness, Denies weakness Psychiatric: Denies anxiety, Denies depression Endocrine: Denies fatigue, Denies weight change Past Medical History Past Medical History: GERD/Reflux Additional Past Medical History / Comment(s): rectocele History of Any Multi-Drug Resistant Organisms: None Reported Past Surgical History: Cholecystectomy, Hernia Repair, Tonsillectomy, Tubal Ligation Past Anesthesia/Blood Transfusion Reactions: No Reported Reaction Additional Past Anesthesia/Blood Transfusion Reaction / Comment(s): pt states that she has never had blood transfusion Smoking Status: Never smoker - Past Family History Brother(s) Family Medical History: Myocardial Infarction ([place]) Sister(s) Family Medical History: Hyperlipidemia, Hypertension Mother Family Medical History: Congestive Heart Failure (CHF), COPD Father Family Medical History: Cancer, Hypertension Additional Family Medical History / Comment(s): Lung cancer Medications and Allergies Home Medications Medication Instructions Recorded Confirmed Type No Known Home Medications 11/28/23 11/28/23 History Allergies Allergy/AdvReac Type Severity Reaction Status Date / Time azithromycin [From Zithromax] Allergy Rash/Hives Verified 12/04/23 06:24 erythromycin base Allergy Rash/Hives Verified 12/04/23 06:24 Exam Osteopathic Statement: *. No significant issues noted on an osteopathic structural exam other than those noted in the History and Physical/Consult. Vital Signs Temp Pulse Resp BP Pulse Ox 12/04/23 06:59 79 14 132/63 100 12/04/23 06:35 97.4 F L 81 18 129/78 100 Intake and Output 12/03/23 12/04/23 12/04/23 22:59 06:59 14:59 Other: Weight 70.2 kg Heart: Regular rate and rhythm Lungs: Clear to auscultation bilaterally Abdomen: Soft, nontender Extremities: Negative Homans sign Assessment and Plan (1) Menorrhagia Current Visit: Yes Status: Acute Code(s): N92.0 - EXCESSIVE AND FREQUENT MENSTRUATION WITH REGULAR CYCLE SNOMED Code(s): 289590232 (2) Arbyrd-Walker grade 3 rectocele Current Visit: Yes Status: Acute Code(s): N81.6 - RECTOCELE SNOMED Code(s): 117326244 Plan: 1. Total laparoscopic hysterectomy and bilateral salpingectomy using da yahaira and diagnostic cystoscopy with posterior repair. possible KATIE BS.
[2023-12-04] MEDS: BUPIVACAINE (PF) 0.25% 30 ML VIAL SQ ONE ×2 (07:30)
[2023-12-04] MEDS: VASOPRESSIN 20 UNIT/ML 1 ML VIAL SQ ONE (07:30)
[2023-12-04] MEDS ORDERED: NALOXONE 0.4 MG/ML 1 ML VIAL IV PRN (07:35)
--- NOTE | 2023-12-04 07:35 | P.ANPRN ---
Procedure Note - Anesthesia - Epidural/Spinal Spinal Time Out Performed: Yes Date of Procedure: 12/04/23 Procedure Start Time: 06:50 Procedure Stop Time: 06:55 Location of Patient: PreOp Indication: Acute Post-Operative Pain, Analgesia, Requested by Surgeon Sedation Type: Sedate with meaningful contact maintained Preparation: Sterile Dressing Position: Sitting Catheter: None Needle Guage: 25 Narrative: Intrathecal Duramorph 0.3mg. Blood Aspirated: No Pain Paresthesia on Injection Noted: No Events: Uneventful and Well Tolerated
[2023-12-04] MEDS: BACITRACIN ZINC 500 UNIT/GM OINT 28.4 GM TUBE TOPICAL ONE (09:04)
[2023-12-04] MEDS: LACTATED RINGERS 1,000 ML IV ONE (09:09)
--- NOTE | 2023-12-04 09:50 | P.OP ---
Date of Procedure: 12/04/23 Preoperative Diagnosis: 1. menorrhagia 2. grade 3 cystocele Postoperative Diagnosis: same Procedure(s) Performed: robotic-assisted laparoscopic hysterectomy and bilateral salpingectomy using da Amaris and diagnostic cystoscopy along with posterior repair Anesthesia: LAURA Surgeon: Tiana Morillo Associate Veterinarian #1: Edelmira De Jesus Estimated Blood Loss (ml): 20 IV fluids (ml): 800 Urine output (ml): 100 Pathology: other (uterus, cervix, bilateral fallopian tubes and vaginal mucosa) Condition: stable Disposition: PACU Operative Findings: normal uterus, tubes and ovaries. grade 3 rectocele Description of Procedure: Patient taken the operating room where general anesthesia was obtained without difficulty. She is prepped and draped in normal sterile fashion dorsal lithotomy position, legs placed in the Rodriguez stirrups. Weighted speculum placed in the vagina and the anterior lip the cervix was grasped with single-tooth tenaculum. The uterus sounded to 10cm and the cervix diameter was 3 cm. The appropriate manipulator tip and ring were placed on the Zeinab manipulator. The Zeinab manipulator was then placed in the uterus. Dow catheter was also placed. Attention was then turned to the abdomen and gloves were changed. A 5 mm supraumbilical incision was made the scalpel and a 5 mm optical trocar was placed under direct visualization. 10 cm to the right of this and 2 cm down a 5 mm incision was made and 8 mm da Amaris port was placed under direct visualization. Same measurements on the opposite side of the patient's abdomen, the 5 mm incision was made and 8 mm da Amaris port was placed under direct visualization. In the left upper quadrant a 10 mm incision was made and a 10 mm optical trocar was placed under direct visualization. The 5 mm optical trocar w as then replaced with the 8 mm da Amaris camera port. The robot was docked on patient's right side. The camera was introduced and then the monopolar curved scissor and vessel sealer placed under direct visualization. I broke scrub and went to the physician console. The left mesosalpinx was cut and sealed using the vessel sealer. The left fallopian tube was then removed through the assistant financial accountant port. The left round ligament was sealed and cut using the vessel sealer. The posterior leaf of the broad ligament was taken down using the monopolar curved scissors. Anterior leaf of the broad ligament was then taken down using the monopolar curved scissors. The uterine artery was sealed and cut using the vessel sealer. The bladder flap was then started using the monopolar curved scissors. Attention was then turned to the right side of the patient's anatomy and the right mesosalpinx sealed and cut using the vessel sealer. The right round ligament was csealed and cut using the vessel sealer. Posterior leaf of the broad ligament was taken down using the monopolar curved scissors and the anterior leaf was taken down using the monopolar curved scissors. The uterine artery was sealed and cut using the vessel sealer. The bladder flap was then finished on this side. Anterior colpotomy was made using the monopolar curved scissors. The rest of the uterus was from the vaginal cuff by following the ring around with the monopolar curved scissors through the uterosacral ligaments back to the anterior portion. Once the uterus and cervix were amputated they were pulled through the vaginal cuff. Hemostasis was assured. The instruments were changed for the Cardier forcep and the marc suture cut. The vaginal cuff was then closed using 2-O stratafix barbed suture in a running fashion. Hemostasis was again assured and the pelvis was irrigated. All instruments were removed from the abdomen and the robot was undocked. attention was then turned to the vaginal portion of the procedure. 2 Allis clamps were placed at the base of the introitus and diluted vasopressin was injected in the posterior mucosa. A linear incision was made in a vertical incision was made using the Metzenbaums to underscore the vaginal mucosa from the fascia. The vaginal mucosa was then bluntly dissected and sharply dissected away from the underlying fascia. The fascia was brought together using Seema plication stitches. I made sure to reinforce the perineal body. The excess vaginal mucosa was trimmed and the vaginal mucosa was closed using 0 Vicryl in a running locked fashion. Hemostasis was assured.I then performed a cystoscopy. There were jets from both ureteral orifices. I then packed the vagina with 1 inch iodoform gauze. The abdominal incisions were closed with 4-0 Vicryl in a subcuticular fashion. Patient tolerated the procedure well, sponge and instrument counts correct 2 and she was taken to recovery room in stable condition condition
[2023-12-04] MEDS ORDERED: IBUPROFEN 600 MG TAB PO PRN (11:12)
[2023-12-04] MEDS ORDERED: SIMETHICONE 80 MG CHEWABLE PO PRN (11:12)
[2023-12-04] MEDS: ONDANSETRON 4 MG/2 ML VIAL IVP PRN (11:22)
[2023-12-04] MEDS: METOCLOPRAMIDE 5 MG/ML 2 ML VIAL IVP SCH (12:03)
[2023-12-04] MEDS: SENNOSIDES-DOCUSATE SODIUM 1 EACH TAB PO SCH (19:55)
[2023-12-04] MEDS: KETOROLAC 15 MG/ML 1 ML VIAL IVP PRN (19:56)
[2023-12-04] MEDS: diphenhydrAMINE 50 MG/ML 1 ML VIAL IVP PRN (19:56)
[2023-12-04 20:26] VITALS: RESP 16
[2023-12-04] MEDS: SCOPOLAMINE 1 MG/72 HR PATCH TRANSDERM ONE (22:38)
[2023-12-04] MEDS: droPERidol 5 MG/2 ML VIAL IVP ONE (22:38)
[2023-12-05 07:59] LABS: HCT 36.5 % (34.0-46.0); HGB 11.7 gm/dL (11.4-16.0); MCH 30.7 pg (25.0-35.0); MCHC 32.1 g/dL (31.0-37.0); MCV 95.7 fL (80.0-100.0); Mean Platelet Volume 7.5; Platelet Count 408 k/uL (150-450); RBC 3.81 m/uL (3.80-5.40); RDW 13.1 % (11.5-15.5); WBC 13.9 k/uL (3.8-10.6)
[2023-12-05 08:10] VITALS: BP 107/69; PULSE 90; TEMP 98.5
--- NOTE | 2023-12-05 08:31 | P.PN ---
Progress Note - Text Progress Note Date: 12/05/23 Postoperative day 1 status post robotic hysterectomy under general endotracheal anesthesia, and intrathecal morphine given for postoperative analgesia, patient doing well, there is no anesthesia related complications, Patient had no headache, vital signs stable , Assessment and plan= postop day 1 , doing well there is no anesthesia related complication.
--- NOTE | 2023-12-05 08:36 | P.DS ---
Providers Expected date of discharge: 12/05/23 Attending physician: Tiana Morillo Primary care physician: Franco Palomo - Discharge Diagnosis(es) (1) Menorrhagia Current Visit: Yes Status: Resolved (2) Oakley-Walker grade 3 rectocele Current Visit: Yes Status: Resolved (3) Status post robot-assisted surgical procedure Current Visit: Yes Status: Acute Hospital Course: Isn't presented for total laparoscopic hysterectomy bilateral salpingectomy using da Amaris and posterior repair. She underwent this procedure without complication. Postoperative course was uneventful. She denies nausea, vomiting, chest pain, shortness of breath or calf pain. She is having minimal vaginal spotting. Her pain is well-controlled on Motrin and Tylenol. Patient will be discharged home postoperative day #1 in stable condition to follow-up with me in 3 weeks. Plan - Discharge Summary Discharge Rx Participant: Yes New Discharge Prescriptions: New Ibuprofen [Motrin] 600 mg PO Q6HR PRN #30 tab PRN Reason: Mild Pain Or Fever >= 100.5 Discharge Medication List Ibuprofen [Motrin] 600 mg PO Q6HR PRN #30 tab 12/05/23 [Rx] Follow up Appointment(s)/Referral(s): Tiana Morillo DO [Doctor of Osteopathic Medicine] - 3 Weeks Discharge Disposition: HOME SELF-CARE
[2023-12-05 08:47] LABS: Lymphocytes # (M) 4.59 k/uL (1.0-4.8); Monocytes # (M) 0.56 k/uL (0-1.0); Neutrophils # (M) 8.76 k/uL (1.3-7.7); Neutrophils % (M) 63 %; Nucleated Red Blood Cells 0 /100 WBC (0-0); Total Cells Counted 100
[2023-12-05] MEDS ORDERED: ACETAMINOPHEN TAB 325 MG TAB PO PRN (09:44)
== END 2023-12-05 12:05 | disposition home or self-care (01) ==
LOC: OR 05:40 → 4FBP 10:03 → OR 12-05 12:05
PROVIDERS: ATTEND Obstetrics & Gynecology
DX: N81.6 Rectocele (principal); N81.10 Cystocele, unspecified; N80.03 Adenomyosis of the uterus; K21.9 Gastro-esophageal reflux disease without esophagitis; G89.18 Other acute postprocedural pain; Z88.1 Allergy status to other antibiotic agents; Z90.49 Acquired absence of other specified parts of digestive tract; Z90.89 Acquired absence of other organs; Z98.890 Other specified postprocedural states; Z79.899 Other long term (current) drug therapy
CPT/HCPCS: 58571; S2900; 81025; 85025; 88307